=== PATIENT | female | born 1980 | race Caucasian/White ===

== ENCOUNTER 2016-10-24 05:22 | Day surgery (SDC) | payer OTHER ==
[2016-10-24] VITALS (8 sets, daily range): BP systolic 99–126; BP diastolic 54–74; PULSE 78–108; TEMP 98–98.3
[~2016-10-24] VITALS: Ht 157.5 cm; Wt 30.6 kg
[~2016-10-24 05:22] MED LIST: CARAFATE S1 GM/10 ML PO; DESYREL 50MG50 MG PO; LEXAPRO20 MG PO; MACROBID 1100 MG/CAP PO; PRILOSEC 20MG20 MG PO; PROTONIX 40MG T40 MG PO; ULTRAM 50MG TAB50 MG PO
[2016-10-24] MEDS ORDERED: NORCO 325 MG-51 TAB PO (09:03)
[2016-10-24] MEDS ORDERED: ZOFRAN ODT4 MG PO (09:04)
== END 2016-10-24 13:00 | disposition home or self-care (01) ==
LOC: SDCO 05:22
DX: K80.10 Calculus of gallbladder with chronic cholecystitis without obstruction (principal)
CPT/HCPCS: J0690; J1100; J1170; J1885; J2405; J2550; J2704; J2710; J3010; J7120; Q9967